=== PATIENT | female | born 1960 ===

== ENCOUNTER 2016-10-17 22:36 | Observation (INO) | payer MEDICAID, OTHER ==
[2016-10-17 22:36] VITALS: BMI 21.8
[2016-10-17 22:46] VITALS: BP 149/79; PULSE 102; RESP 16; TEMP 98.4; O2SAT 96
[2016-10-17] MEDS ORDERED: TDAP Vaccine 0.5 mL Syr IM ONE (23:01)
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
[2016-10-17 23:21] LABS: BASO # 0.1 K/uL (0.0-0.2); BASO % 2.9 % (0.0-2.0); EOS # 0.1 K/uL (0.0-0.7); EOS % 2.2 % (0.0-4.0); HEMATOCRIT 30.7 % (34.0-47.0); LYMPH # 1.5 K/uL (1.0-4.3); LYMPH % 42.7 % (20.0-40.0); MEAN CELL VOLUME 84.9 fl (81.0-99.0); MEAN CORPUSCULAR HEMOGLOBIN 26.4 pg (27.0-31.0); MEAN CORPUSCULAR HGB CONC 31.1 g/dL (33.0-37.0); MEAN PLATELET VOLUME 8.7 fl (7.2-11.7); MONO # 0.4 K/uL (0.0-0.8); MONO % 11.7 % (0.0-10.0); NEUT # 1.4 K/uL (1.8-7.0); NEUT % 40.5 % (50.0-75.0); NRBC % 0.1 % (0.0-0.0); WHITE BLOOD COUNT 3.5 K/uL (4.8-10.8)
[2016-10-17 23:36] LABS: ALB/GLOB RATIO 1.2 (1.0-2.1); ALKALINE PHOSPHATASE 141 U/L (38-126); ALT/SGPT 74 U/L (9-52); AST/SGOT 154 U/L (14-36); BILIRUBIN,TOTAL 0.4 mg/dl (0.2-1.3); BLOOD UREA NITROGEN 8 mg/dl (7-17); CALCIUM 8.9 mg/dL (8.4-10.2); CARBON DIOXIDE 21 mmol/L (22-30); CHLORIDE 111 mmol/L (98-107); GFR AFRICAN-AMERICAN > 60; GLUCOSE,RANDOM 96 mg/dL (65-105); TOTAL PROTEIN 8.6 G/DL (6.3-8.2)
[2016-10-17 23:38] LABS: POTASSIUM 3.9 MMOL/L (3.6-5.0); SODIUM 146 mmol/l (132-148)
[2016-10-17 23:46] LABS: ALCOHOL SERUM 362 mg/dl (0-10)
== END 2016-10-17 23:43 | disposition left against medical advice (07) ==
LOC: H.ER 22:36 → H.EROBSV 23:06
PROVIDERS: ADMIT Emergency Medicine; ATTEND Emergency Medicine
DX: S09.93XA Unspecified injury of face, initial encounter (principal); Y07.03 Male partner, perpetrator of maltreatment and neglect; Y09 Assault by unspecified means

== ENCOUNTER 2016-10-30 13:11 | Emergency (ER) | payer OTHER ==
[2016-10-30 13:11] VITALS: BMI 21.8
[2016-10-30 13:16] VITALS: BP 157/94; PULSE 84; RESP 22; TEMP 98.4; O2SAT 98
--- NOTE | 2016-10-30 13:41 | ED PDOC ---
HPI: Skin/Bite Injury Time Seen by Provider: 10/30/16 13:22 Chief Complaint (Nursing): Abnormal Skin Integrity Chief Complaint (Provider): Rash History Per: Patient History/Exam Limitations: no limitations Onset/Duration Of Symptoms: Days (x3 days) Current Symptoms Are (Timing): Still Present Additional Complaint(s): Meghan Green is a 56 year old female with a history of psoriasis, who presents to the emergency department with a complaint of a rashes on her arms bilaterally, chest, back, and legs. Describes the rash as itchy and "sting, like skin is on fire". Denies any fevers, nausea, vomiting, headaches, abdominal pain, recent sickness, or new medication. Of note, patient states that she has similar flare-ups every two years that comes and goes which has been treated in the past with steroid shots that relieve most of her symptoms. Reports that her daughter also has psoriasis. PMD: Past Medical History Reviewed: Historical Data, Nursing Documentation, Vital Signs Vital Signs: Last Vital Signs Temp 98.4 F 10/30/16 13:13 Pulse 84 10/30/16 13:13 Resp 22 10/30/16 13:13 BP 157/94 H 10/30/16 13:13 Pulse Ox 98 10/30/16 13:53 - Medical History PMH: Anemia, Depression - Family History Family History: States: Unknown Family Hx Other Family History: Daughter has psoriasis - Social History Current smoker - smoking cessation education provided: Yes SMOKER/PACKS PER DAY:: 1 (>10 cigarettes/day) Alcohol: Occasional Drugs: Denies - Immunization History Hx Tetanus Toxoid Vaccination: Yes Hx Influenza Vaccination: No Hx Pneumococcal Vaccination: No - Home Medications Home Medications: Ambulatory Orders Medication Instructions Recorded Fluoxetine HCl [Prozac] 40 mg PO DAILY 04/02/15 Ciprofloxacin/Ciprofloxa HCl 500 mg PO BID #10 ter 05/02/15 [Ciprofloxacin] Calamine/Pramoxine [Caladryl] 180 ml EXT DAILY #1 bottle 10/30/16 Tea Tree Oil 90 ml TP DAILY #1 oil 10/30/16 hydrOXYzine HCl [Atarax] 25 mg PO BID #10 tab 10/30/16 - Allergies Allergies/Adverse Reactions: Allergies Allergy/AdvReac Type Severity Reaction Status Date / Time No Known Allergies Allergy Verified 06/23/17 13:16 Review of Systems ROS Statement: Except As Marked, All Systems Reviewed And Found Negative Constitutional: Negative for: Fever, Other (recent sickness or new medication) Gastrointestinal: Negative for: Nausea, Vomiting, Abdominal Pain Skin: Positive for: Rash (bilateral arms, chest, back, and legs. Described as itchy and stings ("skin on fire")) Neurological: Negative for: Headache Physical Exam - Reviewed Nursing Documentation Reviewed: Yes Vital Signs Reviewed: Yes - Physical Exam Appears: Positive for: Well, Non-toxic, No Acute Distress Head Exam: Positive for: ATRAUMATIC, NORMAL INSPECTION, NORMOCEPHALIC Skin: Positive for: Rash (red patches of skin with silvery scales to posterior elbows, back of legs, full torso (front and back). Flat plaques with areas of skin excoriation) Neck: Positive for: Normal, Painless ROM, Supple Cardiovascular/Chest: Positive for: Regular Rate, Rhythm. Negative for: Murmur Respiratory: Positive for: Normal Breath Sounds. Negative for: Crackles, Rales , Rhonchi, Stridor Gastrointestinal/Abdominal: Positive for: Normal Exam, Bowel Sounds, Soft. Negative for: Tenderness Back: Positive for: Normal Inspection. Negative for: L CVA Tenderness, R CVA Tenderness Neurologic/Psych: Positive for: Alert, Oriented - ECG O2 Sat by Pulse Oximetry: 98 (RA) Pulse Ox Interpretation: Normal Medical Decision Making Medical Decision Making: Initial Impression: Psoriasis Initial Plan: Decadron Injection 10mg IM Atarax 50mg PO Upon provider reevaluation patient is medically stable, and requires no further treatment in the ED at this time. Patient will be discharged home with Rx for Caladryl 180ml and tea tree oil 90ml. Counseling was provided and all questions were answered regarding diagnosis and need for follow up with business banking representative. There is agreement to discharge plan. Return if symptoms persist or worsen. Clinical Impression: Psoriasis; Pruritic dermatitis Scribe Attestation: Documented by Jenna Mccarthy, acting as a scribe for Taylor Higgins PA-C. Provider Scribe Attestation: All medical record entries made by the Scribe were at my direction and personally dictated by me. I have reviewed the chart and agree that the record accurately reflects my personal performance of the history, physical exam, medical decision making, and the department course for this patient. I have also personally directed, reviewed, and agree with the discharge instructions and disposition. Disposition - Clinical Impression Clinical Impression: Pruritic dermatitis, Psoriasis - Patient ED Disposition Is Patient to be Admitted: No Doctor Will See Patient In The: Office Counseled Patient/Family Regarding: Diagnosis, Need For Followup, Rx Given - Disposition Disposition: Routine/Home Disposition Time: 13:32 Condition: FAIR Prescriptions: Calamine/Pramoxine [Caladryl] 180 ml EXT DAILY #1 bottle hydrOXYzine HCl [Atarax] 25 mg PO BID #10 tab Tea Tree Oil 90 ml TP DAILY #1 oil Instructions: Psoriasis (ED)
== END 2016-10-30 13:56 | disposition home or self-care (01) ==
LOC: H.ER 13:11
DX: L40.9 Psoriasis, unspecified (principal); L30.8 Other specified dermatitis; F17.210 Nicotine dependence, cigarettes, uncomplicated

== ENCOUNTER 2016-12-13 20:06 | Observation (INO) | payer MEDICAID, OTHER ==
[2016-12-13 20:10] VITALS: BMI 22.3
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
[2016-12-13 21:03] VITALS: O2SAT 98
[2016-12-13] MEDS ORDERED: Insulin Regular 100 units/ml ONE (22:04)
[2016-12-13 22:06] LABS: BLOOD UREA NITROGEN 6 mg/dl (7-17); CALCIUM 8.9 mg/dL (8.4-10.2); GFR AFRICAN-AMERICAN > 60; GFR NON-AFRICAN AMERICAN > 60
[2016-12-13 22:16] LABS: BASO # 0.1 K/uL (0.0-0.2); BASO % 2.2 % (0.0-2.0); EOS % 0.7 % (0.0-4.0); LYMPH # 1.4 K/uL (1.0-4.3); LYMPH % 24.5 % (20.0-40.0); MEAN CELL VOLUME 84.2 fl (81.0-99.0); MEAN CORPUSCULAR HEMOGLOBIN 26.9 pg (27.0-31.0); MEAN CORPUSCULAR HGB CONC 31.9 g/dL (33.0-37.0); MEAN PLATELET VOLUME 8.4 fl (7.2-11.7); MONO # 0.3 K/uL (0.0-0.8); MONO % 6.1 % (0.0-10.0); NEUT # 3.7 K/uL (1.8-7.0); NEUT % 66.5 % (50.0-75.0); NRBC % 0.1 % (0.0-0.0); RBC 3.71 Mil/uL (3.80-5.20); RED CELL DISTRIBUTION WIDTH 21.1 % (11.5-14.5); SALICYLATE < 1.0 mg/dl; WHITE BLOOD COUNT 5.5 K/uL (4.8-10.8)
[2016-12-13 22:26] LABS: ACETAMINOPHEN < 10.0 ug/ml (10.0-30.0)
[2016-12-14 04:41] VITALS: BP 113/65; PULSE 78; RESP 18
[2016-12-14 06:44] VITALS: TEMP 98.2
== END 2016-12-14 06:45 | disposition home or self-care (01) ==
LOC: H.ER 20:06 → H.EROBSV 20:11
PROVIDERS: ADMIT Emergency Medicine; ATTEND Emergency Medicine
DX: F10.129 Alcohol abuse with intoxication, unspecified (principal); Y90.8 Blood alcohol level of 240 mg/100 ml or more; F32.9 Major depressive disorder, single episode, unspecified; D64.9 Anemia, unspecified; Z78.1 Physical restraint status

== ENCOUNTER 2017-01-06 15:27 | Emergency (ER) | payer MEDICAID, OTHER ==
[2017-01-06 15:27] VITALS: BMI 22.3
[2017-01-06 15:47] VITALS: BP 155/58; PULSE 62; RESP 18; TEMP 97.5; O2SAT 99
[2017-01-06] MEDS ORDERED: Fluorescein 1 mg Ophthalmic Strip ONE (16:41)
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
== END 2017-01-06 17:05 | disposition home or self-care (01) ==
LOC: H.ER 15:27
DX: T15.00XA Foreign body in cornea, unspecified eye, initial encounter (principal); Y92.008 Other place in unspecified non-institutional (private) residence as the place of occurrence of the external cause

== ENCOUNTER 2017-01-25 13:26 | Emergency (ER) | payer MEDICAID, OTHER ==
[2017-01-25 13:26] VITALS: BMI 22.3
[2017-01-25 13:56] VITALS: BP 160/95; PULSE 83; RESP 16; TEMP 98; O2SAT 98
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
== END 2017-01-25 14:50 | disposition home or self-care (01) ==
LOC: H.ER 13:26
DX: H72.92 Unspecified perforation of tympanic membrane, left ear (principal); Y04.0XXA Assault by unarmed brawl or fight, initial encounter; Y92.89 Other specified places as the place of occurrence of the external cause

== ENCOUNTER 2017-07-13 03:55 | Emergency (ER) | payer MEDICAID, OTHER ==
[2017-07-13 03:55] VITALS: BMI 22.3
[2017-07-13 04:01] VITALS: RESP 18
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
[2017-07-13 05:13] LABS: ALB/GLOB RATIO 0.9 (1.0-2.1); ALBUMIN 4.3 g/dL (3.5-5.0); ALT/SGPT 23 U/L (9-52); AST/SGOT 62 U/L (14-36); BLOOD UREA NITROGEN 9 mg/dl (7-17); CALCIUM 9.1 mg/dL (8.4-10.2); GFR AFRICAN-AMERICAN > 60; GFR NON-AFRICAN AMERICAN > 60
[2017-07-13 05:21] LABS: BASO # 0.1 K/uL (0.0-0.2); BASO % 1.7 % (0.0-2.0); EOS # 0.2 K/uL (0.0-0.7); EOS % 3.6 % (0.0-4.0); HEMOGLOBIN 9.8 g/dL (12.0-16.0); LYMPH % 38.1 % (20.0-40.0); MEAN CORPUSCULAR HEMOGLOBIN 24.9 pg (27.0-31.0); MEAN CORPUSCULAR HGB CONC 31.5 g/dL (33.0-37.0); MEAN PLATELET VOLUME 8.3 fl (7.2-11.7); MONO # 0.4 K/uL (0.0-0.8); MONO % 7.8 % (0.0-10.0); NEUT # 2.5 K/uL (1.8-7.0); NEUT % 48.8 % (50.0-75.0); NRBC % 0.1 % (0.0-0.0); RBC 3.92 Mil/uL (3.80-5.20); RED CELL DISTRIBUTION WIDTH 23.5 % (11.5-14.5); WHITE BLOOD COUNT 5.1 K/uL (4.8-10.8)
--- NOTE | 2017-07-13 07:17 | ED PDOC ---
- Laboratory Results Result Diagrams: 07/13/17 04:46 07/13/17 04:46 - ECG O2 Sat by Pulse Oximetry: 97 (RA) Pulse Ox Interpretation: Normal Medical Decision Making Medical Decision Making: Time: 7:10 Patient was signed out to me by , pending clinical sobriety. 15:05 Patient is clinically sober, alert, and oriented x3. Upon provider evaluation patient is medically stable, and requires no further treatment in the ED at this time. Patient will be discharged home. Disposition - Clinical Impression Clinical Impression: Alcohol abuse with intoxication - POA Present On Arrival: None - Disposition Referrals: [facility] [Outside] Disposition: Routine/Home Disposition Time: 16:00 Condition: GOOD Instructions: Alcohol Abuse and Alcoholism (DC) Print Language: CZECH
[2017-07-13 11:42] LABS: SQUAMOUS EPITHIAL 34 /hpf (0-5); URINE BACTERIA OCC (<OCC); URINE BILIRUBIN NEGATIVE (NEGATIVE); URINE BLOOD NEGATIVE (NEGATIVE); URINE CLARITY CLOUDY (Clear); URINE COLOR YELLOW (YELLOW); URINE GLUCOSE (UA) NEG (Normal); URINE LEUKOCYTE ESTERASE NEG Leu/uL (Negative); URINE PROTEIN NEGATIVE (NEGATIVE); URINE UROBILINOGEN 0.2-1.0 mg/dL (0.2-1.0)
[2017-07-13 11:56] LABS: BARBITURATES, UR NEGATIVE (NEGATIVE); BENZODIAZEPINES, UR NEGATIVE (NEGATIVE); OPIATES, UR NEGATIVE (NEGATIVE); PHENCYCLIDINE, UR NEGATIVE (NEGATIVE)
[2017-07-13 16:05] VITALS: BP 120/67; PULSE 88; TEMP 96.9
[2017-07-14 07:24] VITALS: O2SAT 97
== END 2017-07-13 16:05 | disposition home or self-care (01) ==
LOC: H.ER 03:55
DX: F10.129 Alcohol abuse with intoxication, unspecified (principal); F32.9 Major depressive disorder, single episode, unspecified

== ENCOUNTER 2017-07-15 23:33 | Emergency (ER) | payer OTHER ==
[2017-07-15 23:33] VITALS: BMI 22.3
--- NOTE | 2017-07-15 23:41 | ED PDOC ---
HPI: Psych/Substance Abuse Time Seen by Provider: 07/15/17 23:35 Chief Complaint (Nursing): Alcohol Ingestion Chief Complaint (Provider): alcohol ingestion ED Caveat: Uncooperative History Per: EMS History/Exam Limitations: intoxication Onset/Duration Of Symptoms: Days (07/15/17) Associated Symptoms: Agitation Additional Complaint(s): 57 y/o female was brought into the ED by EMS for psychiatric evaluation due to alcohol intoxication. Patient is agitated and uncooperative. PMD: Provider TBD Past Medical History Reviewed: Historical Data, Nursing Documentation, Vital Signs - Medical History PMH: Anemia, Depression - Family History Family History: States: Unknown Family Hx - Social History Current smoker - smoking cessation education provided: Yes - Immunization History Hx Tetanus Toxoid Vaccination: No Hx Influenza Vaccination: No Hx Pneumococcal Vaccination: No - Home Medications Home Medications: Ambulatory Orders Medication Instructions Recorded DiphenhydrAMINE [Benadryl] 25 mg PO Q6 #30 cap 11/03/16 Ketoconazole 2% Cr [Nizoral] 1 appl TP BID #1 tube 11/03/16 Polymyxin/Trimethoprim Sulfate 1 - 2 ml OD DAILY #1 bottle 01/06/17 [Polytrim Ophth Soln] Ketorolac Tromethamine [Toradol] 10 mg PO TID #20 cap 01/25/17 - Allergies Allergies/Adverse Reactions: Allergies Allergy/AdvReac Type Severity Reaction Status Date / Time No Known Allergies Allergy Verified 07/15/17 23:35 Review of Systems ROS Statement: Except As Marked, All Systems Reviewed And Found Negative Psych: Positive for: Other (agitated and uncooperative) Physical Exam - Reviewed Nursing Documentation Reviewed: Yes Vital Signs Reviewed: Yes - Physical Exam Appears: Positive for: Uncomfortable (agitated and aggressive) Head Exam: Positive for: ATRAUMATIC, NORMAL INSPECTION, NORMOCEPHALIC Skin: Positive for: Normal Color, Warm, Dry Eye Exam: Positive for: EOMI, Normal appearance, PERRL ENT: Positive for: Normal ENT Inspection Neck: Positive for: Normal, Painless ROM, Supple. Negative for: Decreased ROM, Limited ROM Cardiovascular/Chest: Positive for: Regular Rate, Rhythm. Negative for: Murmur Respiratory: Positive for: Normal Breath Sounds. Negative for: Decreased Breath Sounds, Accessory Muscle Use, Wheezing Gastrointestinal/Abdominal: Positive for: Normal Exam, Bowel Sounds, Soft. Negative for: Tenderness Extremity: Positive for: Normal ROM. Negative for: Tenderness, Pedal Edema, Deformity Neurologic/Psych: Positive for: Alert, Oriented (x3), Mood/Affect (uncooperative ) - ECG Pulse Ox Interpretation: Normal - Critical Care Total Time (In Min): 30 Medical Decision Making Medical Decision Making: Time: 23:38 Initial Impression: 57 y/o female intoxicated Initial Plan: --Alcohol Serum, Glucose --Ativan 2mg --Haldol 5mg --1:1 Observation --Accucheck --Reevaluation 4 point restraints and and sedation ordered for patient safety due to possible elopement/self injury Documented by Evelin Finley acting as a scribe for Saad Velasco MD. All medical record entries made by the Scribe were at my direction and personally dictated by me. I have reviewed the chart and agree that the record accurately reflects my personal performance of the history, physical exam, medical decision making, and the department course for this patient. I have also personally directed, reviewed, and agree with the discharge instructions and disposition. Disposition - Clinical Impression Clinical Impression: Alcohol abuse - Patient ED Disposition Is Patient to be Admitted: Transfer of Care - Disposition Disposition: Transfer of Care Disposition Time: 07:00 Condition: FAIR Forms: [employer] ([place]) Patient Signed Over To: Sofía Odom
[2017-07-16 12:04] VITALS: BP 118/63; PULSE 78; RESP 18; TEMP 98.3; O2SAT 98
--- NOTE | 2017-07-16 12:26 | ED PDOC ---
- ECG O2 Sat by Pulse Oximetry: 98 Medical Decision Making Medical Decision Making: patient now awake. alert. gait steady. Will discharge. Disposition Doctor Will See Patient In The: Office Counseled Patient/Family Regarding: Diagnosis, Need For Followup - Clinical Impression Clinical Impression: Alcohol abuse - POA Present On Arrival: None - Disposition Disposition: Routine/Home Disposition Time: 12:00 Condition: IMPROVED Instructions: Alcohol Abuse and Alcoholism (DC) Forms: [employer] ([place])
== END 2017-07-16 13:05 | disposition home or self-care (01) ==
LOC: H.ER 23:33
DX: F10.10 Alcohol abuse, uncomplicated (principal); F32.9 Major depressive disorder, single episode, unspecified
CPT/HCPCS: 80320; 82948; 96372; 99283; J1630; J2060

== ENCOUNTER 2017-12-08 09:06 | Emergency (ER) | payer MEDICAID, OTHER ==
[2017-12-08 09:09] VITALS: BMI 21.4
[2017-12-08 09:13] VITALS: BP 110/70; PULSE 79; RESP 18; TEMP 99; O2SAT 100
--- NOTE | 2017-12-08 09:28 | ED PDOC ---
HPI: CCC, URI, Sore Throat Time Seen by Provider: 12/08/17 09:12 Chief Complaint (Nursing): Cough, Cold, Congestion History Per: Patient Onset/Duration Of Symptoms: Days (2) Current Symptoms Are (Timing): Still Present Associated Symptoms: Cough, Sputum. denies: Fever Severity: Mild Additional Complaint(s): Cough productive green sputum x 2 days. Denies fever or SOB Past Medical History Vital Signs: Last Vital Signs Temp 99 F 12/08/17 09:09 Pulse 79 12/08/17 09:09 Resp 18 12/08/17 09:09 BP 110/70 12/08/17 09:09 Pulse Ox 100 12/08/17 09:28 - Medical History PMH: Anemia, Depression - Family History Family History: States: Unknown Family Hx - Immunization History Hx Tetanus Toxoid Vaccination: No Hx Influenza Vaccination: No Hx Pneumococcal Vaccination: No - Home Medications Home Medications: Ambulatory Orders Medication Instructions Recorded Albuterol 0.083% [Albuterol 3 ml IH Q8 #1 neb 12/08/17 Sulfate 3 Ml] Azithromycin [Zithromax] 250 mg PO DAILY #6 tab 12/08/17 - Allergies Allergies/Adverse Reactions: Allergies Allergy/AdvReac Type Severity Reaction Status Date / Time No Known Allergies Allergy Verified 12/08/17 09:23 Review of Systems ROS Statement: Except As Marked, All Systems Reviewed And Found Negative Respiratory: Positive for: Cough Physical Exam - Reviewed Nursing Documentation Reviewed: Yes Vital Signs Reviewed: Yes - Physical Exam Appears: Positive for: Non-toxic, No Acute Distress Head Exam: Positive for: ATRAUMATIC, NORMAL INSPECTION, NORMOCEPHALIC Skin: Positive for: Normal Color, Warm, DRY Eye Exam: Positive for: EOMI, Normal appearance, PERRL ENT: Positive for: Normal ENT Inspection Neck: Positive for: Normal, Painless ROM Cardiovascular/Chest: Positive for: Regular Rate, Rhythm Respiratory: Positive for: Rhonchi. Negative for: Respiratory Distress Gastrointestinal/Abdominal: Positive for: Normal Exam, Soft Back: Positive for: Normal Inspection Extremity: Positive for: Normal ROM Neurologic/Psych: Positive for: Alert, Oriented - ECG O2 Sat by Pulse Oximetry: 100 Disposition - Clinical Impression Clinical Impression: Bronchitis - Patient ED Disposition Is Patient to be Admitted: No Counseled Patient/Family Regarding: Studies Performed, Diagnosis, Need For Followup, Rx Given - Disposition Referrals: [facility] [Outside] Disposition: Routine/Home Disposition Time: 09:57 Condition: FAIR Prescriptions: Albuterol 0.083% [Albuterol Sulfate 3 Ml] 3 ml IH Q8 #1 neb Azithromycin [Zithromax] 250 mg PO DAILY #6 tab Instructions: Acute Bronchitis Forms: [employer] ([place]amese)
--- NOTE | 2017-12-08 10:05 | RAD ---
Date of service: 12/08/2017 HISTORY: cough COMPARISON: No prior. TECHNIQUE: Chest PA and lateral FINDINGS: LUNGS: No active pulmonary disease. PLEURA: No significant pleural effusion identified. No pneumothorax apparent. CARDIOVASCULAR: Normal. OSSEOUS STRUCTURES: Mild scoliosis. VISUALIZED UPPER ABDOMEN: Normal. OTHER FINDINGS: None. IMPRESSION: No active disease. No pulmonary infiltrate appreciated
== END 2017-12-08 10:11 | disposition home or self-care (01) ==
LOC: H.ER 09:06
DX: J40 Bronchitis, not specified as acute or chronic (principal)

== ENCOUNTER 2018-03-21 12:08 | Emergency (ER) | payer MEDICAID, OTHER ==
[2018-03-21 12:08] VITALS: BMI 21.4
[2018-03-21 12:18] VITALS: TEMP 98
--- NOTE | 2018-03-21 13:17 | ED PDOC ---
History of Present Illness History of Present Illness: 57yo female, comes to ER reporting bodyaches, chills, and a mild cough for the past month. Patient reports the symptoms are intermittent and associated with occasional fevers and vomiting; patient states recently, she has not had an episode of vomiting or fevers. She denies any chest pain, abdominal pain or diarrhea as well. Patient reports a history of bronchitis and states she is a daily smoker. She reports "sick neighbors" but otherwise denies any recent travels. She states today, she felt her bodyaches were worse and she felt generalized malaise, prompting ER visit. HPI: Influenza Time Seen by Provider: 03/21/18 12:44 Chief Complaint: Dizziness/Lightheaded Chief Complaint (Provider): Cough, bodyaches History Per: Patient Exam Limitations: no limitations Have you had recent travel within the past 21 days to any of: No Onset/Duration Of Symptoms: Persistent Symptoms include: fever, bodyaches. denies: vomiting, diarrhea, rash Past Medical History Reviewed: Historical Data, Nursing Documentation, Vital Signs Vital Signs: Last Vital Signs Temp 98 F 03/21/18 12:17 Pulse 89 03/21/18 12:17 Resp BP 153/77 H 03/21/18 12:17 Pulse Ox 100 03/21/18 12:17 - Medical History PMH: Anemia, Bronchitis, Depression - Surgical History Surgical History: No Surg Hx - Family History Family History: States: No Known Family Hx - Social History Current smoker - smoking cessation education provided: Yes Drugs: Denies - Immunization History Hx Tetanus Toxoid Vaccination: No Hx Influenza Vaccination: No Hx Pneumococcal Vaccination: No - Home Medications Home Medications: Ambulatory Orders Medication Instructions Recorded Albuterol 0.083% [Albuterol 3 ml IH Q8 #1 neb 12/08/17 Sulfate 3 Ml] Azithromycin [Zithromax] 250 mg PO DAILY #6 tab 12/08/17 Docusate Sodium [Colace] 100 mg PO BID #60 capsule 03/21/18 Ferrous Sulfate 325 mg PO BID #60 tablet 03/21/18 - Allergies Allergies/Adverse Reactions: Allergies Allergy/AdvReac Type Severity Reaction Status Date / Time No Known Allergies Allergy Verified 12/08/17 09:23 Review of Systems ROS Statement: Except As Marked, All Systems Reviewed And Found Negative Constitutional: Positive for: Fever, Chills, Malaise Cardiovascular: Negative for: Chest Pain Respiratory: Positive for: Cough. Negative for: Shortness of Breath, Sputum Gastrointestinal: Negative for: Abdominal Pain, Diarrhea Physical Exam - Reviewed Nursing Documentation Reviewed: Yes Vital Signs Reviewed: Yes - Physical Exam Appears: Positive for: Non-toxic, No Acute Distress Head Exam: Positive for: ATRAUMATIC, NORMAL INSPECTION, NORMOCEPHALIC Skin: Positive for: Normal Color, Warm, DRY Eye Exam: Positive for: EOMI, Normal appearance, PERRL ENT: Positive for: Normal ENT Inspection. Negative for: Pharyngeal Erythema, Tonsillar Exudate, Tonsillar Swelling Neck: Positive for: Normal, Painless ROM Cardiovascular/Chest: Positive for: Regular Rate, Rhythm Respiratory: Positive for: CNT, Normal Breath Sounds Gastrointestinal/Abdominal: Positive for: Normal Exam Back: Positive for: Normal Inspection Extremity: Positive for: Normal ROM. Negative for: Pedal Edema Neurologic/Psych: Positive for: Alert, Oriented Medical Decision Making Medical Decision Making: Impression: Flu like symptoms Differential: Pneumonia, influenza, UTI Plan: -- Labs -- UDip -- Chest x-ray -- Rapid flu 1400 Labs reviewed, patient with anemia. Most likely microcytic anemia due to iron deficiency. Patient reports frequent alcohol use as well. Patient does not meet criteria for admission as she did not have chest pain, loss of consciousness and her symptoms have been ongoing > 1 mo. Patient to be discharged home with prescription for iron supplements and instructions for follow up with PMD in 2-3 days. Scribe Attestation: Documented by Loren Carrera, acting as a scribe for Brendan Hoover MD. Provider Scribe Attestation: All medical record entries made by the Scribe were at my direction and personally dictated by me. I have reviewed the chart and agree that the record accurately reflects my personal performance of the history, physical exam, medical decision making, and the department course for this patient. I have also personally directed, reviewed, and agree with the discharge instructions and disposition. - Laboratory Results Result Diagrams: 03/21/18 13:05 03/21/18 13:05 - ECG O2 Sat by Pulse Oximetry: 100 Disposition - Clinical Impression Clinical Impression: Dizziness, Anemia - Patient ED Disposition Is Patient to be Admitted: No Doctor Will See Patient In The: Office Counseled Patient/Family Regarding: Studies Performed, Diagnosis, Need For F ollowup - Disposition Referrals: [facility] [Outside] Disposition: Routine/Home Disposition Time: 14:00 Condition: GOOD Additional Instructions: NURA HERNANDEZ, thank you for letting us take care of you today. Your provider was Brendan oHover MD and you were treated for FLU LIKE SYMPTOMS. The emergency medical care you received today was directed at your acute symptoms. If you were prescribed any medication, please fill it and take as directed. It may take several days for your symptoms to resolve. Return to the Emergency Department if your symptoms worsen, do not improve, or if you have any other problems. Please contact your doctor or call one of the physicians/clinics you have been referred to that are listed on the Patient Visit Information form that is included in your discharge packet. Bring any paperwork you were given at discharge with you along with any medications you are taking to your follow up visit. Our treatment cannot replace ongoing medical care by a primary care provider outside of the emergency department. Thank you for allowing the [facility] team to be part of your care today. If you had an X-Ray or CT scan: A Radiologist will review the ED reading if any change in treatment is needed we will contact you. If you had a blood, urine, or wound culture: It will take several days for the results, if any change in treatment is needed we will contact you. If you had an STI test: It will take 48 hours for the results. Please call after 1 week if you have not heard back. Prescriptions: Docusate Sodium [Colace] 100 mg PO BID #20 capsule Ferrous Sulfate 325 mg PO BID #60 tablet Instructions: Anemia Caused by Low Iron, Adult (DC)
[2018-03-21 13:18] LABS: BASO # 0.1 K/uL (0.0-0.2); BASO % 1.7 % (0.0-2.0); EOS # 0.1 K/uL (0.0-0.7); EOS % 1.3 % (0.0-4.0); HEMOGLOBIN 6.6 g/dL (12.0-16.0); LYMPH # 0.8 K/uL (1.0-4.3); LYMPH % 12.5 % (20.0-40.0); MEAN CORPUSCULAR HEMOGLOBIN 26.4 pg (27.0-31.0); MEAN CORPUSCULAR HGB CONC 30.4 g/dL (33.0-37.0); MEAN PLATELET VOLUME 8.1 fl (7.2-11.7); MONO # 0.7 K/uL (0.0-0.8); MONO % 11.2 % (0.0-10.0); NEUT # 4.9 K/uL (1.8-7.0); NEUT % 73.3 % (50.0-75.0); NRBC % 0.1 % (0.0-0.0); RBC 2.49 Mil/uL (3.80-5.20); RED CELL DISTRIBUTION WIDTH 22.6 % (11.5-14.5); WHITE BLOOD COUNT 6.7 K/uL (4.8-10.8)
[2018-03-21 13:40] LABS: BLOOD UREA NITROGEN 10 mg/dl (7-17); CALCIUM 9.2 mg/dL (8.4-10.2); GFR NON-AFRICAN AMERICAN > 60
[2018-03-21 15:13] VITALS: BP 138/79; PULSE 77; RESP 18; O2SAT 96
--- NOTE | 2018-03-21 15:21 | RAD ---
Date of service: 03/21/2018 HISTORY: cough fever COMPARISON: 12/08/2017. TECHNIQUE: Chest PA and lateral FINDINGS: LUNGS: No active pulmonary disease. PLEURA: No significant pleural effusion identified. No pneumothorax apparent. CARDIOVASCULAR: No aortic atherosclerotic calcification present. Normal cardiac size. No radiographic findings to suggest acute or significant cardiovascular disease. OSSEOUS STRUCTURES: No significant abnormalities. VISUALIZED UPPER ABDOMEN: Normal. OTHER FINDINGS: None. IMPRESSION: No active disease. No significant interval change compared to the prior examination(s).
== END 2018-03-21 15:05 | disposition home or self-care (01) ==
LOC: H.ER 12:08
DX: D64.9 Anemia, unspecified (principal); R42 Dizziness and giddiness; F17.200 Nicotine dependence, unspecified, uncomplicated; Z79.899 Other long term (current) drug therapy; Z86.59 Personal history of other mental and behavioral disorders

== ENCOUNTER 2018-05-27 01:37 | Emergency (ER) | payer OTHER ==
[2018-05-27 01:37] VITALS: BMI 21.4
--- NOTE | 2018-05-27 01:55 | ED PDOC ---
HPI: Psych/Substance Abuse Time Seen by Provider: 05/27/18 01:51 Chief Complaint (Nursing): Alcohol Ingestion Chief Complaint (Provider): Alcohol Ingestion ED Caveat: Intoxicated History Per: Patient History/Exam Limitations: intoxication Onset/Duration Of Symptoms: Mins Current Symptoms Are (Timing): Still Present Suicide/Self Injury Attempted (Context): None Modifying Factor(s): Alcohol, Other (EDP) Additional Complaint(s): 58 y/o female brought in by EMS for evaluation of EDP and alcohol intoxication, onset prior to arrival. Patient combative with staff on arrival, refusing to answer questions. Patient noted to be unsteady on feet, fall onto painter thus requiring further assistance. History limited due to intoxication and substance abuse. PMD: none provided Past Medical History Reviewed: Historical Data, Nursing Documentation, Vital Signs Vital Signs: Last Vital Signs Temp 98.6 F 05/27/18 01:41 Pulse 92 H 05/27/18 01:41 Resp 18 05/27/18 01:41 BP 130/71 05/27/18 01:41 Pulse Ox 99 05/27/18 01:41 - Medical History PMH: Anemia, Bronchitis, Depression - Surgical History Surgical History: No Surg Hx - Family History Family History: States: Unknown Family Hx - Social History Alcohol: > 2 Drinks/Day Drugs: Other (EDP) - Immunization History Hx Tetanus Toxoid Vaccination: No Hx Influenza Vaccination: No Hx Pneumococcal Vaccination: No - Home Medications Home Medications: Ambulatory Orders Medication Instructions Recorded Albuterol 0.083% [Albuterol 3 ml IH Q8 #1 neb 12/08/17 Sulfate 3 Ml] Azithromycin [Zithromax] 250 mg PO DAILY #6 tab 12/08/17 Docusate Sodium [Colace] 100 mg PO BID #60 capsule 03/21/18 RX: Ferrous Sulfate 325 mg PO BID #60 tablet 03/21/18 - Allergies Allergies/Adverse Reactions: Allergies Allergy/AdvReac Type Severity Reaction Status Date / Time No Known Allergies Allergy Verified 12/08/17 09:23 Review of Systems Review Of Systems: ROS cannot be obtained secondary to pt's inabilty to answer questions. Physical Exam - Reviewed Nursing Documentation Reviewed: Yes Vital Signs Reviewed: Yes - Physical Exam Appears: Positive for: No Acute Distress Head Exam: Positive for: ATRAUMATIC Skin: Positive for: Warm, Dry Neck: Positive for: Painless ROM Cardiovascular/Chest: Negative for: Bradycardia, Tachycardia Respiratory: Negative for: Accessory Muscle Use, Respiratory Distress Neurologic/Psych: Positive for: Gait (UNSTEADY) - Laboratory Results Result Diagrams: 05/27/18 02:53 05/27/18 02:53 - ECG O2 Sat by Pulse Oximetry: 99 (RA) Pulse Ox Interpretation: Normal Medical Decision Making Medical Decision Making: Time: 0153 A/P: Alcohol intoxication and substance abuse -- Patient will be sedated and restrained for patient and ED staff safety. -- Alcohol Serum -- BMP -- Urine Drug Screen -- CBC with differentials -- Ativan 2 mg IM -- Haldol 5 mg IM -- 1:1 Observation -- Restraint: Violent or harm to self/others Time: 0620 -- On re-evaluation, patient remains lethargic. Patient not sober enough for discharge. Labs demonstrate low platelets and alcohol level of 283. Vital signs stable Time: 0700 -- Patient endorsed to Dr. Hermosillo, pending discussion with patient regarding outpatient workup and sobriety. Scribe Attestation: Documented by Radha Holguin, acting as a scribe for Anne Marie Stone MD. Provider Scribe Attestation: All medical record entries made by the Scribe were at my direction and personally dictated by me. I have reviewed the chart and agree that the record accurately reflects my personal performance of the history, physical exam, medical decision making, and the department course for this patient. I have also personally directed, reviewed, and agree with the discharge instructions and disposition. Disposition - Clinical Impression Clinical Impression: Alcohol abuse, Hypokalemia, Thrombocytopenia - Patient ED Disposition Is Patient to be Admitted: Transfer of Care - Disposition Referrals: [facility] [Outside] Disposition: Transfer of Care Disposition Time: 07:00 Condition: FAIR Instructions: Alcohol Use - When Is Drinking a Problem?, Hypokalemia, Bleeding Precautions Patient Signed Over To: Patrick Hermosillo Handoff Comments: pending discussion with patient regarding outpatient workup and sobriety.
[2018-05-27 03:18] LABS: EOS % 0.9 % (0.0-4.0); HEMOGLOBIN 11.9 g/dL (12.0-16.0); LYMPH # 1.1 K/uL (1.0-4.3); LYMPH % 36.4 % (20.0-40.0); MEAN CELL VOLUME 98.9 fl (81.0-99.0); MEAN CORPUSCULAR HEMOGLOBIN 31.5 pg (27.0-31.0); MEAN CORPUSCULAR HGB CONC 31.8 g/dL (33.0-37.0); MEAN PLATELET VOLUME 9.8 fl (7.2-11.7); MONO # 0.3 K/uL (0.0-0.8); MONO % 8.3 % (0.0-10.0); NEUT # 1.6 K/uL (1.8-7.0); NEUT % 53.4 % (50.0-75.0); NRBC % 0.1 % (0.0-0.0); RBC 3.77 Mil/uL (3.80-5.20); RED CELL DISTRIBUTION WIDTH 16.8 % (11.5-14.5)
[2018-05-27 03:19] LABS: BLOOD UREA NITROGEN 8 mg/dl (7-17); CALCIUM 8.7 mg/dL (8.4-10.2); GFR NON-AFRICAN AMERICAN > 60
[2018-05-27] MEDS ORDERED: Potassium Chloride 20 mEq ER Tab PO STA (09:32)
--- NOTE | 2018-05-27 09:37 | ED PDOC ---
- Laboratory Results Result Diagrams: 05/27/18 02:53 05/27/18 02:53 Lab Results: 69 platelets; 3.2 k - ECG O2 Sat by Pulse Oximetry: 98 Pulse Ox Interpretation: Normal - Progress ED Course And Treament: 700: Took over care from Dr. Stone. Fu on sobriety. Platelets low and k low. hx anemia. 1456: Pt. ambulated but unsteady. Dr. Ferreira to take over care. Disposition - Clinical Impression Clinical Impression: Alcohol abuse, Hypokalemia, Thrombocytopenia - POA Present On Arrival: None - Disposition Disposition: Transfer of Care Disposition Time: 13:00 Condition: FAIR Instructions: Alcohol Use - When Is Drinking a Problem?, Hypokalemia, Bleeding Precautions Patient Signed Over To: Hal Ferreira
[2018-05-27] MEDS ORDERED: Potassium Chloride 20 mEq ER Tab PO ONE ×2 (10:09→10:14)
--- NOTE | 2018-05-27 12:45 | RAD ---
Date of service: 05/27/2018 HISTORY: possible admission COMPARISON: 03/21/2018 FINDINGS: LUNGS: No active pulmonary disease. PLEURA: No significant pleural effusion identified, no pneumothorax apparent. CARDIOVASCULAR: No aortic atherosclerotic calcification present. Normal cardiac size. No pulmonary vascular congestion. OSSEOUS STRUCTURES: No significant abnormalities. VISUALIZED UPPER ABDOMEN: Normal. OTHER FINDINGS: None. IMPRESSION: No active disease.
[2018-05-27 15:48] VITALS: PULSE 96; RESP 18
--- NOTE | 2018-05-27 15:51 | ED PDOC ---
- Laboratory Results Result Diagrams: 05/27/18 02:53 05/27/18 02:53 - ECG O2 Sat by Pulse Oximetry: 97 - Progress Re-evaluation Time: 15:50 Condition: Improved (Awake alert oriented x 3 No focal neuro deficits) Disposition - Clinical Impression Clinical Impression: Alcohol abuse, Hypokalemia, Thrombocytopenia - POA Present On Arrival: None - Disposition Referrals: [facility] [Outside] Disposition: Routine/Home Disposition Time: 15:50 Condition: FAIR Instructions: Alcohol Use - When Is Drinking a Problem?, Hypokalemia, Bleeding Precautions
[2018-05-27 21:40] VITALS: BP 136/70; TEMP 99.6
[2018-05-30 11:34] VITALS: O2SAT 99
== END 2018-05-27 16:30 | disposition home or self-care (01) ==
LOC: H.ER 01:37
DX: F10.129 Alcohol abuse with intoxication, unspecified (principal); E87.6 Hypokalemia; D69.6 Thrombocytopenia, unspecified; Y90.8 Blood alcohol level of 240 mg/100 ml or more; F32.9 Major depressive disorder, single episode, unspecified; D64.9 Anemia, unspecified
CPT/HCPCS: 71045; 80048; 80320; 82948; 85025; 94770; 96372; 99285; J1630; J2060

== ENCOUNTER 2018-07-07 13:17 | Emergency (ER) | payer OTHER ==
[2018-07-07 13:18] VITALS: BMI 21.4
[2018-07-07 14:05] VITALS: BP 139/65; PULSE 70; RESP 16; TEMP 98.6; O2SAT 99
--- NOTE | 2018-07-07 15:43 | ED PDOC ---
HPI: Skin/Bite Injury Time Seen by Provider: 07/07/18 14:09 Chief Complaint (Nursing): Abnormal Skin Integrity Chief Complaint (Provider): Rash History Per: Patient History/Exam Limitations: no limitations Onset/Duration Of Symptoms: Days (x1 week) Current Symptoms Are (Timing): Still Present Additional Complaint(s): 58 year old female presents to the ED for evaluation of a worsening rash to her chin and neck for the past week. Patient reports a history of eczema in those areas and usually uses OTC creams, but has had no relief. Otherwise, denies pain and fever. PMD: Dilia Portillo Past Medical History Reviewed: Historical Data, Nursing Documentation, Vital Signs Vital Signs: Last Vital Signs Temp 98.6 F 07/07/18 14:02 Pulse 70 07/07/18 14:02 Resp 16 07/07/18 14:02 BP 139/65 07/07/18 14:02 Pulse Ox 99 07/07/18 14:02 - Medical History PMH: Anemia, Bronchitis, Depression Other PMH: eczema - Surgical History Surgical History: No Surg Hx - Family History Family History: States: Unknown Family Hx - Immunization History Hx Tetanus Toxoid Vaccination: No Hx Influenza Vaccination: No Hx Pneumococcal Vaccination: No - Home Medications Home Medications: Ambulatory Orders Medication Instructions Recorded Albuterol 0.083% [Albuterol 3 ml IH Q8 #1 neb 12/08/17 Sulfate 3 Ml] Azithromycin [Zithromax] 250 mg PO DAILY #6 tab 12/08/17 Docusate Sodium [Colace] 100 mg PO BID #60 capsule 03/21/18 Ferrous Sulfate 325 mg PO BID #60 tablet 03/21/18 Mupirocin 2% Cream [Bactroban 1 applic TOP BID #1 tube 07/07/18 Cream] predniSONE [Prednisone] 40 mg PO DAILY #10 tab 07/07/18 - Allergies Allergies/Adverse Reactions: Allergies Allergy/AdvReac Type Severity Reaction Status Date / Time No Known Allergies Allergy Verified 07/07/18 14:02 Review of Systems ROS Statement: Except As Marked, All Systems Reviewed And Found Negative Constitutional: Negative for: Fever Skin: Positive for: Rash (to chin and neck) Physical Exam - Reviewed Nursing Documentation Reviewed: Yes Vital Signs Reviewed: Yes - Physical Exam Appears: Positive for: No Acute Distress Skin: Positive for: Rash (chin: honey crusted lesion with minimal surrounding erythema; neck: scattered erythematous macule papular rash with no vesicles or pustules) ENT: Positive for: Normal ENT Inspection. Negative for: Pharyngeal Erythema, Tonsillar Exudate, Tonsillar Swelling Cardiovascular/Chest: Positive for: Regular Rate, Rhythm Respiratory: Positive for: Normal Breath Sounds. Negative for: Respiratory Distress Neurologic/Psych: Positive for: Alert, Oriented (x3). Negative for: Mot or/Sensory Deficits - ECG O2 Sat by Pulse Oximetry: 99 (RA) Pulse Ox Interpretation: Normal Medical Decision Making Medical Decision Making: Time: 1414 Initial Impression: impetigo, eczema Initial Plan: --Patient informed she needs to follow up with PMD for further evaluation. Return parameters discussed and pt given scripts for Mupirocin and Prednisone. She verbalized agreement of plan, stable for discharge at this time. Scribe Attestation: Documented by Brandi Lyn, acting as a scribe for Dmitriy Vila PA-C. Provider Scribe Attestation: All medical record entries made by the Scribe were at my direction and personally dictated by me. I have reviewed the chart and agree that the record accurately reflects my personal performance of the history, physical exam, medical decision making, and the department course for this patient. I have also personally directed, reviewed, and agree with the discharge instructions and disposition. Disposition - Clinical Impression Clinical Impression: Impetigo, Eczema - Patient ED Disposition Is Patient to be Admitted: No - Disposition Referrals: [facility] [Outside] formerly [facility] [Outside] Disposition Time: 14:45 Condition: STABLE Additional Instructions: FOLLOW UP WITH PMD FOR FURTHER EVALUATION RETURN TO ED IMMEDIATELY IF SYMPTOMS WORSEN NURA HERNANDEZ, thank you for letting us take care of you today. Your provider was Patrick Hermosillo MD and you were treated for INFLAMATION,ITCHING. The emergency medical care you received today was directed at your acute symptoms. If you were prescribed any medication, please fill it and take as directed. It may take several days for your symptoms to resolve. Return to the Emergency Department if your symptoms worsen, do not improve, or if you have any other problems. Please contact your doctor or call one of the physicians/clinics you have been referred to that are listed on the Patient Visit Information form that is included in your discharge packet. Bring any paperwork you were given at discharge with you along with any medications you are taking to your follow up visit. Our treatment cannot replace ongoing medical care by a primary care provider outside of the emergency department. Thank you for allowing the [facility] team to be part of your care today. If you had an X-Ray or CT scan: A Radiologist will review the ED reading if any change in treatment is needed we will contact you. If you had a blood, urine, or wound culture: It will take several days for the results, if any change in treatment is needed we will contact you. If you had an STI test: It will take 48 hours for the results. Please call after 1 week if you have not heard back. Prescriptions: Mupirocin 2% Cream [Bactroban Cream] 1 applic TOP BID #1 tube predniSONE [Prednisone] 40 mg PO DAILY #10 tab Instructions: Eczema (Atopic Dermatitis) (DC), Impetigo (DC) Forms: [employer] (Latvian)
== END 2018-07-07 15:11 | disposition home or self-care (01) ==
LOC: H.ER 13:17
DX: L30.9 Dermatitis, unspecified (principal); L01.00 Impetigo, unspecified